=== PATIENT | male | born 1990 | race Caucasian/White ===

== ENCOUNTER 2023-07-18 11:56 | Outpatient (CLI) | payer OTHER ==
--- NOTE | 2023-07-18 15:56 | XRAY Report ---
PROCEDURE: Cervical Spine 2 View INDICATIONS: SPRAIN OF LEFT SHOULDER JOINT,MUSCLE AND TENDON TECHNIQUE: 3 view(s) of the cervical spine were acquired. COMPARISON: None. FINDINGS: Bones: No fractures or dislocations to the T1 level. Mild C4-C5 and C5-C6 degenerative disc disease. The lateral masses of C1 appear intact on the odontoid view. No suspicious bony lesions. Soft tissues: No prevertebral soft tissue swelling. IMPRESSION No fracture. No acute osseous lesion. If there is continued clinical concern for pathology, then CT o r MRI should be considered for further evaluation. Reviewed by: Rasheeda Johnson MD, PhD on 07/18/2023 3:55 PM PDT Approved by: Rasheeda Johnson MD, PhD on 07/18/2023 3:55 PM PDT Station ID: [id number]
--- NOTE | 2023-07-18 15:58 | XRAY Report ---
PROCEDURE: Shoulder 3 View LT INDICATIONS: SPRAIN OF LEFT SHOULDER JOINT,MUSCLE AND TENDON TECHNIQUE: 3 views of the shoulder were acquired. COMPARISON: None. FINDINGS: Bones: No fractures or dislocations. No suspicious bony lesions. Visualized ribs appear intact. Soft tissues: No suspicious soft tissue calcifications. The visualized lungs are within normal limi ts. IMPRESSION: No fracture. No osseous lesion. If symptoms and/or clinical concern for pathology persists, further a ssessment with repeat plain film radiographs (7-10 days) or advanced imaging (CT, MR, bone scan) shou ld be considered. Reviewed by: Rasheeda Johnson MD, PhD on 07/18/2023 3:57 PM PDT Approved by: Rasheeda Johnson MD, PhD on 07/18/2023 3:57 PM PDT Station ID: [id number]
== END 2023-07-18 11:57 | disposition home or self-care (01) ==
LOC: DI 11:56
PROVIDERS: ATTEND Registered Nurse
DX: S43.492A Other sprain of left shoulder joint, initial encounter (principal); S16.1XXA Strain of muscle, fascia and tendon at neck level, initial encounter; M62.830 Muscle spasm of back; M54.12 Radiculopathy, cervical region